=== PATIENT | male | born 1985 | race Caucasian/White ===

== ENCOUNTER 2018-07-17 09:12 | Observation (INO) | payer BC ==
[2018-07-17] MEDS ORDERED: SODIUM CHLORIDE 0.9% 1,000 ML IV STA (09:34)
--- NOTE | 2018-07-17 09:37 | ED ---
General Adult HPI - General Chief complaint: Abdominal Pain Stated complaint: rt abdominal pain Time Seen by Provider: 07/17/18 09:22 Source: patient, RN notes reviewed Mode of arrival: ambulatory Limitations: no limitations - History of Present Illness Initial comments: Patient 33-year-old male presented to the emergency room today with a chief complaint of abdominal pain that started yesterday when he woke up. Patient does admit to pain located right lower quadrant. Does not that it's worse with bumps in the road when he was driving here to the hospital. He does admit that his appetite has been decreased. He denies any nausea, vomiting, diarrhea. Patient states it is a constant pain located in the right lower quadrant. Denies any radiation currently rates it a 2/10. States it is worse on palpation. Denies any other complaints. Patient denies any recent fever, chills , shortness of breath, chest pain, back pain, nausea or vomiting, numbness or tingling, dysuria or hematuria, constipation or diarrhea, headaches or visual changes, or any other complaints. - Related Data Home Medications Medication Instructions Recorded Confirmed Calcium Carbonate [Tums] 500 mg PO DAILY 07/17/18 07/17/18 Allergies Allergy/AdvReac Type Severity Reaction Status Date / Time No Known Allergies Allergy Verified 07/17/18 09:30 Review of Systems ROS Statement: Those systems with pertinent positive or pertinent negative responses have been documented in the HPI. ROS Other: All systems not noted in ROS Statement are negative. Past Medical History Past Medical History: No Reported History History of Any Multi-Drug Resistant Organisms: None Reported Past Surgical History: No Surgical Hx Reported Past Psychological History: No Psychological Hx Reported Smoking Status: Former smoker Past Alcohol Use History: Daily Past Drug Use History: None Reported General Exam - General Exam Comments Initial Comments: General: The patient is awake and alert, in no distress, and does not appear acutely ill. Eye: There is normal conjunctiva bilaterally. No signs of icterus. Ears, nose, mouth and throat: There are moist mucous membranes and no oral lesions. Neck: The neck is supple, there is no tenderness or JVD. Cardiovascular: There is a regular rate and rhythm. No murmur, rub or gallop is appreciated. Respiratory: Lungs are clear to auscultation, respirations are non-labored, breath sounds are equal. No wheezes, stridor, rales, or rhonchi. Gastrointestinal: Abdomen soft on palpation. Patient does have tenderness in right lower quadrant. No rebound, guarding or CVA tenderness. Musculoskeletal: Normal ROM, no tenderness. Sensation intact. Neurological: A&O x 3. CN II-XII intact, There are no obvious motor or sensory deficits. Coordination appears grossly intact. Speech is normal. Skin: Skin is warm and dry and no rashes or lesions are noted. Psychiatric: Cooperative, appropriate mood & affect, normal judgment. Limitations: no limitations Course Vital Signs 07/17/18 07/17/18 09:14 11:27 Temperature 98.5 F 98.2 F Pulse Rate 94 78 Respiratory 16 18 Rate Blood Pressure 109/80 113/81 O2 Sat by Pulse 98 100 Oximetry Medical Decision Making - Medical Decision Making Patient's ultrasound reviewed and does show evidence for acute appendicitis. Patient's labs are unremarkable. Case discussed with attending physician Dr. Cormier who did discuss case with surgeon on-call Dr. Dallas will admit the patient. - Lab Data Result diagrams: 07/17/18 10:05 07/17/18 10:05 Lab Results 07/17/18 07/17/18 07/17/18 Range/Units 10:05 10:05 10:05 WBC 4.9 (3.8-10.6) k/uL RBC 4.88 (4.30-5.90) m/uL Hgb 15.8 (13.0-17.5) gm/dL Hct 46.0 (39.0-53.0) % MCV 94.3 (80.0-100.0) fL MCH 32.3 (25.0-35.0) pg MCHC 34.3 (31.0-37.0) g/dL RDW 12.8 (11.5-15.5) % Plt Count 203 (150-450) k/uL Neutrophils % 70 % Lymphocytes % 20 % Monocytes % 7 % Eosinophils % 1 % Basophils % 0 % Neutrophils # 3.4 (1.3-7.7) k/uL Lymphocytes # 1.0 (1.0-4.8) k/uL Monocytes # 0.4 (0-1.0) k/uL Eosinophils # 0.1 (0-0.7) k/uL Basophils # 0.0 (0-0.2) k/uL Sodium 138 (137-145) mmol/L Potassium 4.5 (3.5-5.1) mmol/L Chloride 100 (98-107) mmol/L Carbon Dioxide 30 (22-30) mmol/L Anion Gap 8 mmol/L BUN 15 (9-20) mg/dL Creatinine 0.79 (0.66-1.25) mg/dL Est GFR (CKD-EPI)AfAm >90 (>60 ml/min/1.73 sqM) Est GFR (CKD-EPI)NonAf >90 (>60 ml/min/1.73 sqM) Glucose 97 (74-99) mg/dL Calcium 9.5 (8.4-10.2) mg/dL Total Bilirubin 0.9 (0.2-1.3) mg/dL AST 18 (17-59) U/L ALT 30 (21-72) U/L Alkaline Phosphatase 49 (38-126) U/L Total Protein 7.3 (6.3-8.2) g/dL Albumin 4.3 (3.5-5.0) g/dL Amylase 52 (30-110) U/L Lipase 83 (23-300) U/L Urine Color Yellow Urine Appearance Clear (Clear) Urine pH 7.0 (5.0-8.0) Ur Specific Milo 1.023 (1.001-1.035) Urine Protein Trace H (Negative) Urine Glucose (UA) Negative (Negative) Urine Ketones Negative (Negative) Urine Blood Negative (Negative) Urine Nitrite Negative (Negative) Urine Bilirubin Negative (Negative) Urine Urobilinogen 4.0 (<2.0) mg/dL Ur Leukocyte Esterase Negative (Negative) Disposition Clinical Impression: Acute appendicitis Disposition: ADMITTED IP TO THIS HOSP Condition: Good Is patient prescribed a controlled substance at d/c from ED?: No Referrals: None,Stated [Primary Care Provider] - 1-2 days Time of Disposition: 11:58
[2018-07-17 10:18] LABS: Appearance,Urine Clear (Clear); Basophils % (A) 0 %; Bilirubin,Urine Negative (Negative); Blood,Urine Negative (Negative); Color,Urine Yellow; Eosinophils # (A) 0.1 k/uL (0-0.7); Eosinophils % (A) 1 %; Glucose,Urine (UA) Negative (Negative); HGB 15.8 gm/dL (13.0-17.5); Ketones,Urine Negative (Negative); Leukocyte Esterase,Urine Negative (Negative); Lymphocytes % (A) 20 %; MCH 32.3 pg (25.0-35.0); MCHC 34.3 g/dL (31.0-37.0); MCV 94.3 fL (80.0-100.0); Mean Platelet Volume 6.8; Monocytes # (A) 0.4 k/uL (0-1.0); Monocytes % (A) 7 %; Neutrophils # (A) 3.4 k/uL (1.3-7.7); Neutrophils % (A) 70 %; Nitrite,Urine Negative (Negative); Platelet Count 203 k/uL (150-450); Protein,Urine Trace (Negative); RBC 4.88 m/uL (4.30-5.90); RDW 12.8 % (11.5-15.5); Specific Gravity,Urine 1.023 (1.001-1.035); WBC 4.9 k/uL (3.8-10.6)
[2018-07-17 10:28] LABS: ALT 30 U/L (21-72); AST 18 U/L (17-59); Albumin 4.3 g/dL (3.5-5.0); Alkaline Phosphatase 49 U/L (38-126); Amylase 52 U/L (30-110); Anion Gap 8 mmol/L; Blood Urea Nitrogen 15 mg/dL (9-20); Calcium 9.5 mg/dL (8.4-10.2); Carbon Dioxide 30 mmol/L (22-30); Chloride 100 mmol/L (98-107); Glucose 97 mg/dL (74-99); Lipase 83 U/L (23-300); Potassium 4.5 mmol/L (3.5-5.1); Sodium 138 mmol/L (137-145); Total Bilirubin 0.9 mg/dL (0.2-1.3); Total Protein 7.3 g/dL (6.3-8.2)
--- NOTE | 2018-07-17 10:56 | CT ---
EXAMINATION TYPE: CT abdomen pelvis w con DATE OF EXAM: 07/17/2018 COMPARISON: HISTORY: Right lower quadrant pain CT DLP: 574.2 mGycm CONTRAST: CT scan of the abdomen and pelvis is performed without Oral Contrast and with IV Contrast, patient in jected with 100 mL of Isovue 300. FINDINGS: LUNG BASES-: No visible nodule. No infiltrate. LIVER/GB: No calcified gallstones. No space occupying hepatic lesion. Biliary tree is of normal ca liber. PANCREAS: No inflammation. No distinct mass. SPLEEN: No splenic enlargement. No lesion seen. ADRENALS: No nodule. No thickening. KIDNEYS/BLADDER: No hydronephrosis. No nephrolithiasis. No distinct renal mass. Urinary bladder g rossly unremarkable. BOWEL: The appendix is thickened and dilated at 1.2 cm with periappendiceal inflammatory change noted . There is mild reactive thickening of the adjacent terminal ileum. Findings are compatible with unco mplicated acute appendicitis. Gastrointestinal tract is otherwise unremarkable. GENITAL ORGANS: No gross abnormality. LYMPH NODES: No greater than 1cm abdominal or pelvic lymph nodes are appreciated. AORTA: No significant abnormality. OSSEOUS STRUCTURES: No significant abnormality is seen. OTHER: No significant additional abnormality is seen. IMPRESSION: 1. Findings are compatible with uncomplicated acute appendicitis.
[2018-07-17] MEDS ORDERED: SODIUM CHLORIDE 0.9% 1,000 ML IV ONE (12:06)
[2018-07-17] MEDS ORDERED: ONDANSETRON 4 MG/2 ML VIAL IVP PRN ×2 (12:06→15:49)
[2018-07-17] MEDS ORDERED: NALOXONE 0.4 MG/ML 1 ML VIAL IV PRN (12:06)
[2018-07-17] MEDS ORDERED: MORPHINE SULFATE 4 MG/ML SYRINGE IV PRN (12:06)
[2018-07-17] MEDS ORDERED: PIPERACILLIN-TAZOBACTAM 3.375 GM in DEXTROSE/WATER 1 50ML.BAG IVPB STA (12:25)
[2018-07-17] MEDS ORDERED: IV FLUID CONTINUATION 475 ML IV ONE (13:11)
[2018-07-17] MEDS ORDERED: GLYCOPYRROLATE 0.2 MG/ML 2 ML VIAL ONE (14:36)
[2018-07-17] MEDS ORDERED: ROCURONIUM BROMIDE 10 MG/ML 10 ML VIAL IV ONE (14:36)
[2018-07-17] MEDS ORDERED: MIDAZOLAM 2 MG/2 ML VIAL ONE (14:36)
[2018-07-17] MEDS ORDERED: SUCCINYLCHOLINE CHLORIDE VIAL 200 MG/10 ML VIAL IV ONE (14:36)
[2018-07-17] MEDS ORDERED: KETOROLAC 30 MG/ML 1 ML VIAL ONE (14:36)
[2018-07-17] MEDS ORDERED: LIDOCAINE 1% INJ 10MG/ML (20 ML MDV) ONE (14:36)
[2018-07-17] MEDS ORDERED: fentaNYL (PF) 50 MCG/ML 2 ML AMP ONE (14:36)
[2018-07-17] MEDS ORDERED: NEOSTIGMINE 1 MG/ML 10 ML VIAL ONE (14:36)
[2018-07-17] MEDS ORDERED: PROPOFOL 10 MG/ML 20 ML VIAL IV ONE (14:36)
[2018-07-17] MEDS ORDERED: BUPIVACAIN-EPI 0.25%-1:200,000 30 ML VIAL SQ ONE (14:36)
[2018-07-17] MEDS ORDERED: LACTATED RINGERS 1,000 ML IV ONE (15:03)
--- NOTE | 2018-07-17 15:47 | P.OP ---
Date of Procedure: 07/17/18 Preoperative Diagnosis: Acute appendicitis Postoperative Diagnosis: Acute appendicitis Procedure(s) Performed: Laparoscopic appendectomy Anesthesia: DANIELLE Surgeon: Rodrigue Dallas Estimated Blood Loss (ml): 5 Pathology: other (Appendix) Condition: stable Disposition: PACU Indications for Procedure: The patient is a 33-year-old white male with about 36 hour history of lower abdominal pain localizing to the right lower quadrant with diminished appetite but no nausea or vomiting. Computed tomography scan showed evidence of acute appendicitis. Laparoscopic appendectomy possible open was recommended and informed consent was obtained. Operative Findings: Acute appendicitis Description of Procedure: After induction of general endotracheal anesthesia the abdominal wall was prepped with DuraPrep and draped in the usual fashion. Local anesthetic Marcaine 0.5% plain was infiltrated into the skin and subcutaneous tissue just below the umbilicus where a small transverse incision was made. The fascia was then exposed infiltrated with Marcaine and a Veress needle then inserted under direct vision with a satisfactory saline drop test. The peritoneal cavity were then inflated with carbon dioxide to pressure approximately 15 mmHg. The needle was replaced with a 12 mm trocar and the laparoscope inserted. A 5 mm trocar was placed suprapubically about 2 cm above the symphysis pubis and another 5 mm trocar in the left lower quadrant under direct vision under local anesthesia. Visual expiration confirmed acute appendicitis with the appendix Acutely inflamed in the midportion. There was no evidence of perforation. The appendix was grasped and retracted and a window created in the mesoappendix close to the base and the appendix was then divided with the Endo TAVO stapler as was the mesoappendix with 2 passes of the stapler. The appendix was then removed in an Endo Catch bag through the umbilical port site. The right gutter were thoroughly irrigated. Hemostasis was good and the field was dry. All trochars were removed under direct vision. CO2 was evacuated. Fascial incision at the umbilicus closed with interrupted 0 Vicryl sutures and all skin incisions closed with interrupted 4 Vicryl subcuticular sutures and Steri- Strips. Dressings were applied. All counts were correct.
[2018-07-17] MEDS ORDERED: HYDROcodone/APAP 7.5-325MG 1 EACH TAB PO PRN (15:52)
[2018-07-17] MEDS: SODIUM CHLORIDE 0.9% 1,000 ML IV SCH (17:07)
[2018-07-17] MEDS: PIPERACILLIN-TAZOBACTAM 3.375 GM in DEXTROSE/WATER 1 50ML.BAG IVPB SCH (20:10)
[2018-07-18] MEDS: PIPERACILLIN-TAZOBACTAM 3.375 GM in DEXTROSE/WATER 1 50ML.BAG IVPB SCH (03:39)
[2018-07-18] MEDS: SODIUM CHLORIDE 0.9% 1,000 ML IV SCH (03:40)
[2018-07-18 07:45] VITALS: BP 99/64; PULSE 56; RESP 16; TEMP 97
--- NOTE | 2018-07-18 09:11 | P.PN ---
Progress Note - Text Progress Note Date: 07/18/18 The patient is stable 1 post-laparoscopic appendectomy for acute appendicitis without complication. He is afebrile. Tolerating a regular diet. Passing flatus. Voiding well. On examination he is afebrile and in no acute distress. Abdomen is quite soft with minimal tenderness in the periumbilical area. No guarding or rebound. Incisions all look good good with no evidence of complication or infection. Impression satisfactory postoperative course. Recommendation the patient can be discharged home. Follow in about 9-10 days. No heavy lifting or straining for a week. Soft diet. He was given a prescription for,, Tramadol 50 mg 1 every 4-6 hours when necessary for pain 18 tabs. May shower.
--- NOTE | 2018-07-18 09:12 | P.DS ---
Providers Date of admission: 07/17/18 13:00 Attending physician: Rodrigue Dallas Primary care physician: Stated None Patient Condition at Discharge: Good Plan - Discharge Summary Discharge Rx Participant: No New Discharge Prescriptions: New traMADol HCL [Ultram] 50 mg PO Q4HR PRN 3 Days #18 tab PRN Reason: Pain traMADol HCL [Ultram] 50 mg PO Q4HR PRN 3 Days #18 tab PRN Reason: Pain No Action Calcium Carbonate [Tums] 500 mg PO DAILY Discharge Medication List Calcium Carbonate [Tums] 500 mg PO DAILY 07/17/18 [History] traMADol HCL [Ultram] 50 mg PO Q4HR PRN 3 Days #18 tab 07/17/18 [Rx] traMADol HCL [Ultram] 50 mg PO Q4HR PRN 3 Days #18 tab 07/18/18 [Rx] Follow up Appointment(s)/Referral(s): Rodrigue Dallas MD [STAFF PHYSICIAN] - 1 Week None,Stated [Primary Care Provider] - 1-2 days Activity/Diet/Wound Care/Special Instructions: High-fiber diet. Ambulate 4-5 times a day. No heavy lifting for about a week. May shower. Discharge Disposition: HOME SELF-CARE
== END 2018-07-18 11:13 | disposition home or self-care (01) ==
LOC: EC 09:12 → 4MS4W 13:00
PROVIDERS: ADMIT Surgery; ATTEND Surgery
DX: K35.80 Unspecified acute appendicitis (principal); Z79.899 Other long term (current) drug therapy; Z87.891 Personal history of nicotine dependence
CPT/HCPCS: 44970; 96361; 96365; 99285; 36415; 88304; 80053; 82150; 83690; 85025; 81003; 74177; G0378 ×2; J2250; J0330; J2710; J2405; J2001; J3010; J1885; J2543 ×2; J2704; Q9967